=== PATIENT | male | born 1990 | race American Indian/Alaskan Native ===

== ENCOUNTER 2018-09-10 12:52 | Emergency (ER) | payer MEDICAID ==
[2018-09-10 12:58] VITALS: BMI 32.8
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
[2018-09-10 13:23] VITALS: BP 123/66; PULSE 89; RESP 18; TEMP 99.2; O2SAT 97
[2018-09-10] MEDS ORDERED: Amoxicillin-Clav 875-125 mg Tab PO STA (13:32)
== END 2018-09-10 13:50 | disposition home or self-care (01) ==
LOC: ED 12:52
DX: L03.213 Periorbital cellulitis (principal)